=== PATIENT | female | born 1985 | race Caucasian/White ===

== ENCOUNTER 2024-08-12 20:24 | Emergency (ER) | payer MEDICAID, OTHER ==
[~2024-08-12] VITALS: Ht 157.5 cm; Wt 73.7 kg
[2024-08-12 20:36] VITALS: O2SAT 99
[2024-08-12] MEDS ORDERED: DICYCLOMINE 10 MG/5 ML ORAL SYR PO STA (21:26)
[2024-08-12 21:31] LABS: BASOPHILS % 0.1 % (0.0-2.0); EOSINOPHILS % 0.7 % (0.0-5.0); HEMATOCRIT. 31.7 % (36.0-48.0); HEMOGLOBIN. 9.9 g/dL (12.0-16.0); LYMPHOCYTES % 13.3 % (20.0-50.0); MEAN CORPUSCULAR HEMOGLOBIN 21.3 pg (28.0-32.0); MEAN CORPUSCULAR HGB CONC 31.1 g/dL (31.0-37.0); MEAN CORPUSCULAR VOLUME 68.5 fL (81.0-99.0); MEAN PLATELET VOLUME 8.2 fl (7.4-10.4); MONOCYTES % 5.1 % (2.0-8.0); NEUTROPHILS % 80.8 % (40.0-76.0); PLATELET 302 x1000/uL (130-400); RED BLOOD CELL COUNT 4.63 mill/uL (4.2-5.4); RED CELL DISTRIBUTION WIDTH 16.4 % (11.6-14.6); WHITE BLOOD COUNT 13.8 x1000/uL (4.5-11.0)
[2024-08-12 21:35] LABS: DIFFERENTIAL COMMENT 1
[2024-08-12 21:36] LABS: CHLORIDE 104 mEq/L (98-107); POTASSIUM 3.7 mEq/L (3.5-5.1); SODIUM 138 mEq/L (136-145)
[2024-08-12 21:37] LABS: CARBON DIOXIDE 25 mEq/L (21-32)
[2024-08-12 21:38] LABS: CALCIUM 9.3 mg/dL (8.7-10.4)
[2024-08-12 21:41] LABS: INR 0.9; PROTHROMBIN TIME 9.8 sec (9.6-11.0)
[2024-08-12 21:42] LABS: CREATININE 0.7 mg/dL (0.6-1.0); GLUCOSE 294 mg/dL (70-105)
[2024-08-12 21:43] LABS: UREA NITROGEN BLOOD 16 mg/dL (9-23)
[2024-08-12 21:44] LABS: ALANINE AMINOTRANSFERASE 34 IU/L (10-49); ALBUMIN 4.3 g/dL (3.2-4.8); ASPARTATE AMINOTRANSFERASE 39 IU/L (<34)
[2024-08-12 21:45] LABS: BILIRUBIN DIRECT 0.1 mg/dL (<=3.0); BILIRUBIN TOTAL 0.5 mg/dL (0.1-1.0); PROTEIN TOTAL 7.7 g/dL (6.0-8.3)
[2024-08-12 21:48] LABS: TROPONIN I HIGH SENSITIVITY < 4 ng/L (3.0-34)
[2024-08-12 22:11] LABS: HCG SCREEN NEGATIVE
[2024-08-12] MEDS: SODIUM CHLORIDE 0.9% 1,000 ML IV ONE (23:00)
[2024-08-12] MEDS: DICYCLOMINE HCL 10MG CAPSULE PO NR (23:00)
[2024-08-12] MEDS: MAGNESIUM/ALUMINUM HYDROXIDE/SIMETHICONE 30ML UDC PO STA (23:00)
[2024-08-12 23:40] LABS: CLARITY URINE CLEAR (CLEAR); COLOR URINE YELLOW (YELLOW); GLUCOSE URINE 3+ (NEGATIVE); KETONES URINE 2+ (NEGATIVE); LEUKOCYTE ESTERASE URINE NEGATIVE (NEGATIVE); NITRITE URINE NEGATIVE (NEGATIVE); OCCULT BLOOD URINE NEGATIVE (NEGATIVE); PH URINE 5.5 (4.5-8.0); PROTEIN URINE NEGATIVE (NEGATIVE); SPECIFIC GRAVITY URINE 1.044 (1.005-1.030); UROBILINOGEN URINE 0.2 E.U./dL (0.2-1.0)
[2024-08-13] MEDS: ONDANSETRON HCL 4MG/2ML INJ IV STA (00:03)
[2024-08-13] MEDS: FAMOTIDINE 20MG/2ML VIAL IV STA (00:03)
[2024-08-13] MEDS ORDERED: TOPUD PO (00:13)
[2024-08-13] MEDS ORDERED: ONDA4TAB50 PO (00:13)
[2024-08-13 00:20] VITALS: BP 118/75; PULSE 83; RESP 18; TEMP 36.78072; O2SAT 100
[2024-08-13 00:44] LABS: SQUAMOUS EPITHELIAL CELL URINE 1+ /lpf (RARE/1+)
[2024-08-13 00:45] LABS: BACTERIA URINE NONE SEEN; RBC URINE 0-2 /hpf (0-2); WBC URINE 0-2 /hpf (0-2)
== END 2024-08-13 00:30 | disposition home or self-care (01) ==
LOC: ER 20:24 → CANBEDREQ 08-13 00:36
DX: R10.9 Unspecified abdominal pain (principal); E11.9 Type 2 diabetes mellitus without complications; E78.00 Pure hypercholesterolemia, unspecified; I10 Essential (primary) hypertension; Z98.890 Other specified postprocedural states
CPT/HCPCS: 99285; 74176; 71045; 96361; 80076; 80048; 81003; 84703; 83690; 85025; 85610; 84484; 36415; 93005; 96374; 96375; J3490; J2405; J7030